=== PATIENT | male | born 1990 | race Caucasian/White ===

== ENCOUNTER 2018-03-09 22:52 | Emergency (ER) | payer MEDICAID ==
[~2018-03-09] VITALS: Ht 175.3 cm; Wt 100.0 kg
[~2018-03-09 22:52] MED LIST: OLAN5TAB2 PO
[2018-03-09] MEDS ORDERED: MIRT15 PO (23:09)
[2018-03-10 00:01] LABS: BASOPHILS % (AUTO) 0.5 % (0.0-2.0); EOSINOPHILS % (AUTO) 0.3 % (1.0-6.0); HEMATOCRIT 46.4 % (41-53); HEMOGLOBIN 16.4 g/dL (13.5-17.5); LYMPHOCYTES # (AUTO) 2.8 K/uL (1.0-4.8); MEAN CORPUSCULAR HEMOGLOBIN 32.9 pg (26.0-34.0); MEAN CORPUSCULAR HGB CONC 35.4 G/dL (31.0-37.0); MEAN CORPUSCULAR VOLUME 93 fL (80-100); MONOCYTES # (AUTO) 0.9 K/uL (0.1-1.0); MONOCYTES % (AUTO) 8.8 % (2.0-9.0); NEUTROPHILS # (AUTO) 6.3 K/uL (1.8-7.7); NEUTROPHILS % (AUTO) 62.4 % (40.0-70.0); PLATELET COUNT (AUTO) 213 K/uL (150-450); RED BLOOD CELL COUNT(AUTO) 4.99 MIL/uL (4.50-5.90); RED CELL DISTRIBUTION WIDTH 13.4 % (11.5-14.5)
[2018-03-10 00:14] LABS: ANION GAP 15 mmol/L (8-16); CALCIUM, TOTAL 8.5 mg/dL (8.8-10.5); CARBON DIOXIDE 21 mmol/L (22-29); CHLORIDE 101 mmol/L (98-107); CREATININE 0.91 mg/dL (0.60-1.30); GLOMERULAR FILTR. RATE CALC > 60 mL/min (>60); GLUCOSE,RANDOM 102 mg/dL (70-110); POTASSIUM 3.4 mmol/L (3.5-5.1); SODIUM SERUM 137 mmol/L (136-145); UREA NITROGEN, BLOOD 9 mg/dL (7-18)
[2018-03-10] MEDS ORDERED: LORazepam 2 MG/ML VIAL IVP ONE (00:15)
[2018-03-10] MEDS ORDERED: SODIUM CHLORIDE 0.9% 1,000 ML IV ONE (00:15)
[2018-03-10 00:21] LABS: ALANINE AMINOTRANSFERASE 49 U/L (12-78); ALBUMIN 4.2 g/dL (3.4-5.0); ALKALINE PHOSPHATASE 98 U/L (46-116); ASPARTATE AMINOTRANSFERASE 30 U/L (15-37); BILIRUBIN,TOTAL 0.6 mg/dL (0.1-1.0); TOTAL PROTEIN, SERUM 8.2 g/dL (6.4-8.2)
[2018-03-10 00:22] LABS: ACETAMINOPHEN < 2 mcg/mL (10-30); SALICYLATE < 2.8 mg/dL (2.8-20.0)
[2018-03-10 03:30] VITALS: BP 130/93
[2018-03-10 03:31] LABS: AMPHET/METH SCREEN,URINE NEGATIVE (NEGATIVE); BARBITURATE SCREEN, URINE NEGATIVE (NEGATIVE); BENZODIAZEPINES SCREEN,URINE NEGATIVE (NEGATIVE); CANNABINOID SCREEN,URINE POSITIVE (NEGATIVE); COCAINE SCREEN,URINE NEGATIVE (NEGATIVE); METHADONE SCREEN, URINE NEGATIVE (NEGATIVE); OPIATE SCREEN,URINE NEGATIVE (NEGATIVE)
[2018-03-10 03:38] LABS: PHENCYCLIDINE SCREEN,URINE NEGATIVE (NEGATIVE)
== END 2018-03-10 04:26 | disposition home or self-care (01) ==
LOC: EMS 22:53
DX: F41.9 Anxiety disorder, unspecified (principal); F20.9 Schizophrenia, unspecified; F10.10 Alcohol abuse, uncomplicated; Y90.1 Blood alcohol level of 20-39 mg/100 ml
CPT/HCPCS: 36415; 80053; 80307; 85025; 93005; 96374; 99285; G0480 ×2; G0481; J2060; J7030

== ENCOUNTER 2018-04-30 14:47 | Emergency (ER) | payer MEDICAID ==
[~2018-04-30] VITALS: Ht 175.3 cm; Wt 100.0 kg
[~2018-04-30 14:47] MED LIST changes: +MIRT15 PO; +OLAN5TAB40 PO; +SERT50TA12 PO
[2018-04-30] MEDS ORDERED: AMOX250C4 PO (14:57)
[2018-04-30] MEDS ORDERED: IBUP-1506 PO (14:57)
[2018-04-30 16:09] VITALS: BP 135/65
== END 2018-04-30 16:11 | disposition home or self-care (01) ==
LOC: EMS 14:49
DX: F19.982 Other psychoactive substance use, unspecified with psychoactive substance-induced sleep disorder (principal); F20.9 Schizophrenia, unspecified; Z59.0 Homelessness
CPT/HCPCS: 99283

== ENCOUNTER 2019-03-29 21:23 | Inpatient (IN) | payer MEDICAID ==
[~2019-03-29] VITALS: Ht 182.9 cm; Wt 111.4 kg
[~2019-03-29 21:23] MED LIST changes: +AMOX250C4 PO; +IBUP-1506 PO; -OLAN5TAB2 PO; -SERT50TA12 PO
[2019-03-29 22:55] LABS: AMPHET/METH SCREEN,URINE NEGATIVE (NEGATIVE); BARBITURATE SCREEN, URINE NEGATIVE (NEGATIVE); BENZODIAZEPINES SCREEN,URINE NEGATIVE (NEGATIVE); CANNABINOID SCREEN,URINE POSITIVE (NEGATIVE); COCAINE SCREEN,URINE NEGATIVE (NEGATIVE); METHADONE SCREEN, URINE NEGATIVE (NEGATIVE); OPIATE SCREEN,URINE NEGATIVE (NEGATIVE)
[2019-03-29 22:56] LABS: PHENCYCLIDINE SCREEN,URINE NEGATIVE (NEGATIVE)
[2019-03-29 23:27] LABS: BASOPHILS % (AUTO) 0.5 % (0.0-2.0); EOSINOPHILS % (AUTO) 0 % (1.0-6.0); HEMOGLOBIN 15.4 g/dL (13.5-17.5); LYMPHOCYTES # (AUTO) 1.6 K/uL (1.0-4.8); LYMPHOCYTES % (AUTO) 10.4 % (22.0-44.0); MEAN CORPUSCULAR HEMOGLOBIN 32.3 pg (26.0-34.0); MEAN CORPUSCULAR HGB CONC 33.5 G/dL (31.0-37.0); MEAN CORPUSCULAR VOLUME 97 fL (80-100); MONOCYTES # (AUTO) 1.3 K/uL (0.1-1.0); MONOCYTES % (AUTO) 8.4 % (2.0-9.0); NEUTROPHILS # (AUTO) 12.6 K/uL (1.8-7.7); NEUTROPHILS % (AUTO) 80.7 % (40.0-70.0); PLATELET COUNT (AUTO) 199 K/uL (150-450); RED BLOOD CELL COUNT(AUTO) 4.76 MIL/uL (4.50-5.90); RED CELL DISTRIBUTION WIDTH 13.3 % (11.5-14.5)
[2019-03-29 23:39] LABS: ANION GAP 15 mmol/L (8-16); CALCIUM, TOTAL 9.3 mg/dL (8.8-10.5); CARBON DIOXIDE 22 mmol/L (22-29); CHLORIDE 105 mmol/L (98-107); CREATININE 1.13 mg/dL (0.60-1.30); GLOMERULAR FILTR. RATE CALC > 60 mL/min (>60); GLUCOSE,RANDOM 130 mg/dL (70-110); POTASSIUM 3.7 mmol/L (3.5-5.1); SODIUM SERUM 142 mmol/L (136-145); UREA NITROGEN, BLOOD 10 mg/dL (7-18)
[2019-03-29 23:44] LABS: ALANINE AMINOTRANSFERASE 50 U/L (12-78); ALBUMIN 4.1 g/dL (3.4-5.0); ALKALINE PHOSPHATASE 114 U/L (46-116); ASPARTATE AMINOTRANSFERASE 23 U/L (15-37); BILIRUBIN,TOTAL 0.4 mg/dL (0.1-1.0); TOTAL PROTEIN, SERUM 8.2 g/dL (6.4-8.2)
[2019-03-30] MEDS ORDERED: HALOPERIDOL LACTATE 5 MG/ML VIAL IM ONE (01:30)
[2019-03-30] MEDS ORDERED: LORazepam 2 MG/ML VIAL IM ONE (01:30)
[2019-03-30] MEDS ORDERED: DiphenhydrAMINE HCL 50 MG/ML VIAL IM ONE (01:30)
[2019-03-30] MEDS ORDERED: ZOLPIDEM TARTRATE 10 MG TABLET PO PRN (04:15)
[2019-03-30] MEDS ORDERED: LORazepam 2 MG TABLET PO PRN (04:15)
[2019-03-30] MEDS ORDERED: HALOPERIDOL 5 MG TABLET PO PRN (04:15)
[2019-03-30 09:17] VITALS: BP 121/68
[2019-03-30] MEDS ORDERED: GuaiFENesin/D-METHORPHAN [SUGAR-FREE] 200-20MG/10 ML SYRUP UDCUP PO PRN (09:45)
[2019-03-30] MEDS ORDERED: MAG HYDROX/AL HYDROX/SIMETH ES 30 ML SUSPENSION UDCUP PO PRN (09:45)
[2019-03-30] MEDS ORDERED: ONDANSETRON HCL 4 MG TABLET PO PRN (09:45)
[2019-03-30] MEDS ORDERED: LOPERAMIDE HCL 2 MG CAPSULE PO PRN (09:45)
[2019-03-30] MEDS ORDERED: NICOTINE 14 MG/24 HOUR PATCH TD PRN (09:45)
[2019-03-30] MEDS ORDERED: IBUPROFEN 400 MG TABLET PO PRN (09:45)
[2019-03-30] MEDS ORDERED: MAGNESIUM HYDROXIDE SUSPENSION 30 ML UDCUP PO PRN (09:45)
[2019-03-30] MEDS ORDERED: CloNIDine HCL 0.1 MG TABLET PO PRN (09:45)
[2019-03-30] MEDS ORDERED: ACETAMINOPHEN 325 MG TABLET PO PRN (09:45)
[2019-03-30] MEDS ORDERED: DOCUSATE SODIUM 100 MG CAPSULE PO PRN (09:45)
[2019-03-30] MEDS ORDERED: ALBUTEROL SULFATE HFA 90 MCG/PUFF 8 GM INHALER IH PRN (09:45)
[2019-03-30] MEDS ORDERED: PETROLATUM,WHITE 28 GM JELLY TP PRN (09:45)
[2019-03-30 16:00] VITALS: BP 114/66
[2019-03-31 06:51] VITALS: BP 142/79
[2019-03-31 09:16] VITALS: BP 134/70
[2019-03-31] MEDS ORDERED: OLANZapine 5 MG TABLET PO ONE (13:30)
[2019-03-31] MEDS: OLANZapine 5 MG TABLET PO SCH (16:50)
[2019-04-01] MEDS: OLANZapine 5 MG TABLET PO SCH ×2 (08:07→09:00)
[2019-04-01] MEDS: BuPROPion HCL XL 150 MG ER TABLET PO SCH ×2 (08:09→10:01)
[2019-04-01] MEDS ORDERED: BUPR-93 PO (11:32)
[2019-04-01] MEDS ORDERED: OLAN5TAB2 PO (11:32)
== END 2019-04-01 17:00 | disposition home or self-care (01) | DRG 750 ==
LOC: EMS 21:24 → B3A 03-30 06:26
PROVIDERS: ADMIT Psychiatry & Neurology Psychiatry; ATTEND Psychiatry & Neurology Psychiatry
DX: F20.9 Schizophrenia, unspecified (principal); Z59.0 Homelessness; D72.829 Elevated white blood cell count, unspecified; F12.90 Cannabis use, unspecified, uncomplicated; F41.9 Anxiety disorder, unspecified; F31.9 Bipolar disorder, unspecified; R73.9 Hyperglycemia, unspecified; F19.10 Other psychoactive substance abuse, uncomplicated; Z71.51 Drug abuse counseling and surveillance of drug abuser; Z91.14 Patient's other noncompliance with medication regimen
CPT/HCPCS: G0480; J1200; J1630; J2060

== ENCOUNTER 2019-10-19 13:36 | Emergency (ER) | payer MEDICAID ==
[~2019-10-19] VITALS: Ht 175.3 cm; Wt 126.8 kg
[~2019-10-19 13:36] MED LIST changes: -AMOX250C4 PO; +BUPR-93 PO; -IBUP-1506 PO; -MIRT15 PO; +OLAN5TAB2 PO; -OLAN5TAB40 PO
[2019-10-19] MEDS ORDERED: RISP4 PO (13:40)
[2019-10-19] MEDS ORDERED: TRAZ150 PO (13:40)
[2019-10-19 14:16] LABS: BASOPHILS % (AUTO) 0.8 % (0.0-2.0); EOSINOPHILS % (AUTO) 1.2 % (1.0-6.0); LYMPHOCYTES # (AUTO) 2.2 K/uL (1.0-4.8); LYMPHOCYTES % (AUTO) 29.4 % (22.0-44.0); MEAN CORPUSCULAR HEMOGLOBIN 32.2 pg (26.0-34.0); MEAN CORPUSCULAR HGB CONC 34.1 G/dL (31.0-37.0); MEAN CORPUSCULAR VOLUME 95 fL (80-100); MONOCYTES # (AUTO) 0.8 K/uL (0.1-1.0); NEUTROPHILS # (AUTO) 4.4 K/uL (1.8-7.7); NEUTROPHILS % (AUTO) 58.6 % (40.0-70.0); PLATELET COUNT (AUTO) 192 K/uL (150-450); RED BLOOD CELL COUNT(AUTO) 4.96 MIL/uL (4.50-5.90); RED CELL DISTRIBUTION WIDTH 13.6 % (11.5-14.5)
[2019-10-19 14:26] LABS: ANION GAP 10 mmol/L (8-16); CALCIUM, TOTAL 8.8 mg/dL (8.8-10.5); CARBON DIOXIDE 27 mmol/L (22-29); CHLORIDE 103 mmol/L (98-107); CREATININE 0.72 mg/dL (0.60-1.30); GLOMERULAR FILTR. RATE CALC > 60 mL/min (>60); GLUCOSE,RANDOM 111 mg/dL (70-110); POTASSIUM 3.6 mmol/L (3.5-5.1); SODIUM SERUM 140 mmol/L (136-145); UREA NITROGEN, BLOOD 8 mg/dL (7-18)
[2019-10-19 14:31] LABS: ALANINE AMINOTRANSFERASE 54 U/L (12-78); ALBUMIN 4.2 g/dL (3.4-5.0); ALKALINE PHOSPHATASE 106 U/L (46-116); ASPARTATE AMINOTRANSFERASE 21 U/L (15-37); BILIRUBIN,TOTAL 0.9 mg/dL (0.1-1.0); TOTAL PROTEIN, SERUM 8.3 g/dL (6.4-8.2)
[2019-10-19 15:16] LABS: AMPHET/METH SCREEN,URINE NEGATIVE (NEGATIVE); BARBITURATE SCREEN, URINE NEGATIVE (NEGATIVE); BENZODIAZEPINES SCREEN,URINE NEGATIVE (NEGATIVE); CANNABINOID SCREEN,URINE POSITIVE (NEGATIVE); COCAINE SCREEN,URINE NEGATIVE (NEGATIVE); METHADONE SCREEN, URINE NEGATIVE (NEGATIVE); OPIATE SCREEN,URINE NEGATIVE (NEGATIVE)
[2019-10-19 15:17] LABS: PHENCYCLIDINE SCREEN,URINE NEGATIVE (NEGATIVE)
[2019-10-19 15:25] VITALS: BP 134/81
== END 2019-10-19 15:35 | disposition home or self-care (01) ==
LOC: EMS 13:39
DX: G47.00 Insomnia, unspecified (principal); F20.9 Schizophrenia, unspecified; F12.90 Cannabis use, unspecified, uncomplicated; Z98.890 Other specified postprocedural states; Z79.899 Other long term (current) drug therapy; Z59.0 Homelessness
CPT/HCPCS: 36415; 80053; 80307; 85025; 99283; G0480

== ENCOUNTER 2019-10-19 21:40 | Inpatient (IN) | payer MEDICAID ==
[~2019-10-19] VITALS: Ht 175.3 cm; Wt 116.7 kg
[~2019-10-19 21:40] MED LIST changes: +RISP4 PO; +TRAZ150 PO
[2019-10-19 23:30] LABS: AMPHET/METH SCREEN,URINE NEGATIVE (NEGATIVE); BARBITURATE SCREEN, URINE NEGATIVE (NEGATIVE); BENZODIAZEPINES SCREEN,URINE NEGATIVE (NEGATIVE); CANNABINOID SCREEN,URINE POSITIVE (NEGATIVE); COCAINE SCREEN,URINE NEGATIVE (NEGATIVE); METHADONE SCREEN, URINE NEGATIVE (NEGATIVE); OPIATE SCREEN,URINE NEGATIVE (NEGATIVE)
[2019-10-19 23:32] LABS: PHENCYCLIDINE SCREEN,URINE NEGATIVE (NEGATIVE)
[2019-10-19 23:43] LABS: BASOPHILS % (AUTO) 0.6 % (0.0-2.0); EOSINOPHILS % (AUTO) 1.4 % (1.0-6.0); HEMATOCRIT 44.8 % (41-53); HEMOGLOBIN 15.4 g/dL (13.5-17.5); LYMPHOCYTES # (AUTO) 2.8 K/uL (1.0-4.8); LYMPHOCYTES % (AUTO) 31.1 % (22.0-44.0); MEAN CORPUSCULAR HEMOGLOBIN 32.5 pg (26.0-34.0); MEAN CORPUSCULAR HGB CONC 34.3 G/dL (31.0-37.0); MEAN CORPUSCULAR VOLUME 95 fL (80-100); MONOCYTES % (AUTO) 10.7 % (2.0-9.0); NEUTROPHILS # (AUTO) 5.1 K/uL (1.8-7.7); NEUTROPHILS % (AUTO) 56.2 % (40.0-70.0); PLATELET COUNT (AUTO) 193 K/uL (150-450); RED BLOOD CELL COUNT(AUTO) 4.73 MIL/uL (4.50-5.90); RED CELL DISTRIBUTION WIDTH 13.5 % (11.5-14.5)
[2019-10-19 23:51] LABS: ANION GAP 10 mmol/L (8-16); CALCIUM, TOTAL 8.6 mg/dL (8.8-10.5); CARBON DIOXIDE 25 mmol/L (22-29); CHLORIDE 103 mmol/L (98-107); CREATININE 0.86 mg/dL (0.60-1.30); GLOMERULAR FILTR. RATE CALC > 60 mL/min (>60); GLUCOSE,RANDOM 114 mg/dL (70-110); POTASSIUM 3.7 mmol/L (3.5-5.1); SODIUM SERUM 138 mmol/L (136-145); UREA NITROGEN, BLOOD 11 mg/dL (7-18)
[2019-10-19 23:57] LABS: ALANINE AMINOTRANSFERASE 51 U/L (12-78); ALBUMIN 4.1 g/dL (3.4-5.0); ALKALINE PHOSPHATASE 105 U/L (46-116); ASPARTATE AMINOTRANSFERASE 19 U/L (15-37); BILIRUBIN,TOTAL 0.5 mg/dL (0.1-1.0); TOTAL PROTEIN, SERUM 7.9 g/dL (6.4-8.2)
[2019-10-20] MEDS ORDERED: ZOLPIDEM TARTRATE 10 MG TABLET PO ONE (00:30)
[2019-10-20] MEDS ORDERED: ZOLPIDEM TARTRATE 5 MG TABLET PO ONE (00:30)
[2019-10-20] MEDS ORDERED: HALOPERIDOL 5 MG TABLET PO PRN (01:45)
[2019-10-20 03:04] LABS: APPEARANCE,URINE CLEAR (CLEAR); BILIRUBIN,URINE NEGATIVE (NEGATIVE); GLUCOSE, URINE (UA) NEGATIVE (NEGATIVE); KETONES,URINE NEGATIVE (NEGATIVE); LEUKOCYTE ESTERASE ,URINE NEGATIVE (NEGATIVE); NITRATE,URINE NEGATIVE (NEGATIVE); OCCULT BLOOD,URINE NEGATIVE (NEGATIVE); PH,URINE 6.5 (5.0-8.0); PROTEIN,URINE NEGATIVE (NEGATIVE)
[2019-10-20] MEDS: LORazepam 2 MG TABLET PO PRN ×2 (04:40→14:15)
[2019-10-20 05:28] VITALS: BP 146/78
[2019-10-20] MEDS ORDERED: NICOTINE 14 MG/24 HOUR PATCH TD PRN (09:00)
[2019-10-20] MEDS ORDERED: LOPERAMIDE HCL 2 MG CAPSULE PO PRN (09:00)
[2019-10-20] MEDS ORDERED: GuaiFENesin/D-METHORPHAN [SUGAR-FREE] 200-20MG/10 ML SYRUP UDCUP PO PRN (09:00)
[2019-10-20] MEDS ORDERED: CloNIDine HCL 0.1 MG TABLET PO PRN (09:00)
[2019-10-20] MEDS ORDERED: IBUPROFEN 400 MG TABLET PO PRN (09:00)
[2019-10-20] MEDS ORDERED: MAG HYDROX/AL HYDROX/SIMETH ES 30 ML SUSPENSION UDCUP PO PRN (09:00)
[2019-10-20] MEDS ORDERED: ALBUTEROL SULFATE HFA 90 MCG/PUFF 8 GM INHALER IH PRN (09:00)
[2019-10-20] MEDS ORDERED: MAGNESIUM HYDROXIDE SUSPENSION 30 ML UDCUP PO PRN (09:00)
[2019-10-20] MEDS ORDERED: ONDANSETRON HCL 4 MG TABLET PO PRN (09:00)
[2019-10-20] MEDS ORDERED: ACETAMINOPHEN 325 MG TABLET PO PRN (09:00)
[2019-10-20] MEDS ORDERED: PETROLATUM,WHITE 28 GM JELLY TP PRN (09:00)
[2019-10-20 16:47] VITALS: BP 129/82
[2019-10-20] MEDS: DOCUSATE SODIUM 100 MG CAPSULE PO PRN (19:01)
[2019-10-20] MEDS: TraZODone HCL 150 MG TABLET PO SCH (20:45)
[2019-10-21 00:30] VITALS: BP 129/79
[2019-10-21] MEDS: ZOLPIDEM TARTRATE 10 MG TABLET PO PRN (01:14)
[2019-10-21] MEDS: LORazepam 2 MG TABLET PO PRN ×3 (01:14→16:35)
[2019-10-21] MEDS ORDERED: RisperiDONE 4 MG TABLET PO SCH (09:00)
[2019-10-21 09:19] VITALS: BP 126/84
[2019-10-21 17:56] VITALS: BP 146/86
[2019-10-21] MEDS: RisperiDONE 4 MG TABLET PO SCH (20:39)
[2019-10-21] MEDS: DOCUSATE SODIUM 100 MG CAPSULE PO PRN (20:40)
[2019-10-21] MEDS: TraZODone HCL 150 MG TABLET PO SCH (20:40)
[2019-10-21 21:47] VITALS: BP 124/74
[2019-10-22] MEDS: ZOLPIDEM TARTRATE 10 MG TABLET PO PRN (02:30)
[2019-10-22 02:38] VITALS: BP 142/90
[2019-10-22] MEDS: LORazepam 2 MG TABLET PO PRN ×2 (06:16→10:21)
[2019-10-22 08:13] LABS: CHOL/HDL RATIO 4.7 (4.2-7.3)
[2019-10-22] MEDS: RisperiDONE 4 MG TABLET PO SCH (21:00)
[2019-10-22] MEDS: TraZODone HCL 100 MG TABLET PO SCH (21:00)
[2019-10-23 02:02] VITALS: BP 129/70
[2019-10-23 08:39] VITALS: BP 127/76
[2019-10-23 16:28] VITALS: BP 147/96
[2019-10-23] MEDS: TraZODone HCL 100 MG TABLET PO SCH (20:59)
[2019-10-23] MEDS: RisperiDONE 4 MG TABLET PO SCH (20:59)
[2019-10-23] MEDS: DOCUSATE SODIUM 100 MG CAPSULE PO PRN (21:15)
[2019-10-23] MEDS: ZOLPIDEM TARTRATE 10 MG TABLET PO PRN (22:59)
[2019-10-24] MEDS: LORazepam 2 MG TABLET PO PRN ×4 (00:22→21:12)
[2019-10-24 00:49] VITALS: BP 143/95
[2019-10-24 08:53] VITALS: BP 155/95
[2019-10-24 14:09] VITALS: BP 139/98
[2019-10-24 16:50] VITALS: BP 131/82
[2019-10-24] MEDS: TraZODone HCL 100 MG TABLET PO SCH (20:05)
[2019-10-24] MEDS: RisperiDONE 4 MG TABLET PO SCH (20:05)
[2019-10-25 08:30] VITALS: BP 136/90
[2019-10-25] MEDS: LORazepam 2 MG TABLET PO PRN ×2 (08:45→21:57)
[2019-10-25 15:31] VITALS: BP 134/71
[2019-10-25 16:20] VITALS: BP 134/71
[2019-10-25] MEDS: TraZODone HCL 100 MG TABLET PO SCH (20:05)
[2019-10-25] MEDS: RisperiDONE 4 MG TABLET PO SCH (20:05)
[2019-10-25] MEDS ORDERED: QUEtiapine FUMARATE 200 MG ER TABLET PO SCH (21:00)
[2019-10-26 06:13] VITALS: BP 107/62
[2019-10-26 08:36] VITALS: BP 147/90
[2019-10-26] MEDS ORDERED: RISP4 PO (12:13)
[2019-10-26] MEDS ORDERED: QUET200T5 PO (12:13)
[2019-10-26] MEDS ORDERED: TRAZ150 PO (12:15)
== END 2019-10-26 15:01 | disposition home or self-care (01) | DRG 750 ==
LOC: EMS 21:40 → B2S 10-20 02:29
PROVIDERS: ADMIT Psychiatry & Neurology Psychiatry; ATTEND Psychiatry & Neurology Psychiatry
DX: F25.0 Schizoaffective disorder, bipolar type (principal); R45.851 Suicidal ideations; Z59.0 Homelessness; F12.90 Cannabis use, unspecified, uncomplicated; G89.29 Other chronic pain; M54.9 Dorsalgia, unspecified; F19.10 Other psychoactive substance abuse, uncomplicated; Z79.899 Other long term (current) drug therapy
CPT/HCPCS: G0480